=== PATIENT | male | born 1960 | race Caucasian/White ===

== ENCOUNTER 2019-12-02 17:22 | Emergency (ER) | payer OTHER, SELFPAY ==
[2019-12-02 17:23] VITALS: BP 184/103; PULSE 79; RESP 16; TEMP 36.7; O2SAT 99; BMI 25.7
[2019-12-02 17:25] VITALS: BP 184/103; PULSE 79; RESP 16; TEMP 36.7; O2SAT 99
--- NOTE | 2019-12-02 18:12 | ED.VIS.GEN ---
History of Present Illness Chief Complaint: Laceration Informant: Patient Onset: Today Current Severity: Moderate Maximum Severity: Moderate Narrative: Patient presents secondary to right index finger laceration. He was on the roof caulking around his chimney when he cut his finger on a piece of tin flashing. He is unsure of his last tetanus update. He is left-hand dominant. - Past Medical History (1) Hypertension Status: Chronic (2) Asthma Status: Chronic Past Medical History - Allergies and Home Meds Allergies/Adverse Reactions: Allergies Penicillins [PCN] Allergy (Verified 12/02/19 17:24) PT UNSURE OF REACTION Primary Care Physician: Derek Parrish MD [Primary Care Provider] - Prior records reviewed: Yes Lives: Spouse/ Significant Other Smoking Status: Former smoker Review of Systems General: Denies: Chills, Fever Eyes: Denies: Visual changes - bilaterally ENT: Denies: Bilateral ear pain Cardiovascular: Denies: Chest pain Respiratory: Denies: Dyspnea Musculoskeletal: Reports: Extremity Pain Skin: Reports: Wounds Neurological: Denies: Weakness, Parasthesia Hematologic: Denies: Easy bruising, Easy bleeding Allergy: Denies: Uticaria Physical Exam Vital Signs/Narrative: Vital Signs Temp Pulse Resp BP Pulse Ox 12/02/19 17:25 98.1 F 79 16 184/103 H 99 12/02/19 17:23 98.1 F 79 16 184/103 H 99 Inital Vital Signs reviewed: Yes General: Well nourished, Well developed Head: Normocephalic ENT: Moist mucous membranes Neck: Supple Cardiovascular: Regular rate, Regular rhythm Respiratory: No distress, CTA bilaterally Abdomen: Soft, Nontender Extremities: - - 2.5 cm laceration of the palmar aspect of the right index finger crossing the DIP joint. Full range of motion of the extremity is noted. Good cap refill and sensation distally. Neurological: Alert, Oriented x3, Normal Strength, Normal Sensation Psychological: Normal affect Diagnostic/Tx/Re-eval - Medical Decision Making Tetanus update is provided. Digital block plus local anesthesia is provided, total of 3 cc of 1% lidocaine. Wound is cleansed and irrigated. 6 simple interval sutures of 4-0 nylon are placed across the wound. Wound is dressed and wound care is discussed. Patient will have sutures removed in 1 week. ED Disposition - Plan for ED Patient: Disposition: Home or Assisted Living Diagnosis: Finger laceration Instructions: ED Laceration Ext Sutr Stap Tape Referrals: Derek Parrish MD [Primary Care Provider] - 7 Days for suture removal
[2019-12-02 18:15] VITALS: BP 149/87; PULSE 76; RESP 16; O2SAT 98
[2019-12-02] MEDS: Diphth,Pertuss(Acell),Tet Vac 0.5 ML Vial IM (18:20)
== END 2019-12-02 18:29 | disposition home or self-care (01) ==
LOC: ED 18:23
PROVIDERS: Emergency Provider Emergency Medicine; PCP Internal Medicine
DX: S61.210A Laceration without foreign body of right index finger without damage to nail, initial encounter (principal); W26.8XXA Contact with other sharp object(s), not elsewhere classified, initial encounter; Y93.9 Activity, unspecified; Y92.9 Unspecified place or not applicable; I10 Essential (primary) hypertension; J45.909 Unspecified asthma, uncomplicated; Z79.899 Other long term (current) drug therapy; Z87.891 Personal history of nicotine dependence
CPT/HCPCS: 12001; 90471; 90715; 99284